=== PATIENT | male | born 1950 | race African-American/Black ===

== ENCOUNTER 2016-08-22 23:11 | Emergency (ER) | payer OTHER ==
[~2016-08-22] VITALS: Ht 177.8 cm; Wt 92.0 kg
[~2016-08-22 23:11] MED LIST: ASPI1TAB7 PO; CIAL20TA PO; GLUCTAB PO; INSU1INJ5 SQ; LOTE20TA3 PO; TRIA.025%T TOP; [UNRECOGNIZED DRUG - CODE] SQ
[2016-08-22 23:20] VITALS: BP 186/87; PULSE 92; RESP 16; TEMP 98.2; O2SAT 98
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
[2016-08-22] MEDS ORDERED: oxyCODONE/ACETAMINOPHEN 5 MG/325 MG TAB PO ONE (23:30)
[2016-08-22] MEDS ORDERED: MORPHINE SULFATE 4 MG/ML INJ IV ONE (23:30)
[2016-08-22] MEDS ORDERED: ONDANSETRON HCL 4 MG/2 ML VIAL IVP ONE (23:30)
[2016-08-22] MEDS ORDERED: SODIUM CHLORIDE 0.9% FLUSH 10 ML FLUSH IVF PRN (23:30)
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
[2016-08-23 00:35] LABS: AUTOMATED NEUTROPHIL # 2.5 TH/MM3 (1.8-7.7); BASOPHIL # 0.1 TH/MM3 (0-0.2); BASOPHIL % 0.9 % (0.0-2.0); EOSINOPHIL # 0.1 TH/MM3 (0-0.4); EOSINOPHIL % 1.8 % (0.0-4.0); HEMO FLAGS DIFF FINAL; LYMPH % 36.7 % (9.0-44.0); MEAN CELL VOLUME 84.7 FL (80.0-100.0); MEAN CORPUSCULAR HEMOGLOBIN 29.8 PG (27.0-34.0); MEAN CORPUSCULAR HGB CONC 35.2 % (32.0-36.0); NEUT % 46.6 % (16.0-70.0); PLATELET COUNT 197 TH/MM3 (150-450); RED BLOOD COUNT 4.84 MIL/MM3 (4.50-5.90); RED CELL DISTRIBUTION WIDTH 13.9 % (11.6-17.2); WHITE BLOOD COUNT 5.5 TH/MM3 (4.0-11.0)
[2016-08-23 00:47] LABS: PROTHROMBIN TIME - PATIENT 10.5 SEC (9.8-11.6)
[2016-08-23] MEDS ORDERED: HUMALOG SQ (01:00)
[2016-08-23] MEDS ORDERED: CIAL20TA PO (01:00)
[2016-08-23] MEDS ORDERED: ASPI-110 PO (01:00)
[2016-08-23] MEDS ORDERED: METF1000 PO (01:00)
[2016-08-23] MEDS ORDERED: PERC5TAB12 PO (01:02)
[2016-08-23 01:22] VITALS: BP 178/82; PULSE 80; RESP 18
== END 2016-08-23 01:30 | disposition home or self-care (01) ==
LOC: NEPE 23:11
DX: S49.91XA Unspecified injury of right shoulder and upper arm, initial encounter (principal); M25.561 Pain in right knee; M54.2 Cervicalgia; R51 Headache; V43.92XA Unspecified car occupant injured in collision with other type car in traffic accident, initial encounter; Y92.488 Other paved roadways as the place of occurrence of the external cause
CPT/HCPCS: 70450; 71010; 72125; 72170; 73030; 73564; 85025; 85610; 85730; 99285